=== PATIENT | male | born 1975 | race Caucasian/White ===

== ENCOUNTER 2018-11-07 20:16 | Emergency (ER) | payer SELFPAY ==
[2018-11-07 20:18] VITALS: PULSE 88; RESP 16; TEMP 37.1; O2SAT 99
[2018-11-07 20:24] VITALS: RESP 16
[2018-11-07] MEDS: Aspirin 81 MG CHEW 324 MG CH (20:29)
[2018-11-07] MEDS: Ketorolac 15 MG/ML VIAL IVP (20:29)
[2018-11-07] MEDS: Normal Saline 1,000 ML 1000 ML IV (20:29)
--- NOTE | 2018-11-07 20:29 | DI.RAD_ITS ---
SYMPTOM/DIAGNOSIS: LT SIDED CHEST PAIN, ATYPICAL LT CLAVICLE PA AND LATERAL CHEST: The lungs are well expanded and free of infiltrate. There is no evidence of a pleural effusion or pneumothorax. The heart is not enlarged. Note is made of an apparent mild cortical irregularity at the medial third of the left clavicle on the inferior cortex. IMPRESSION: No evidence of acute cardiopulmonary disease. A mild cortical irregularity at the medial third of the left clavicle is noted inferiorly. This finding could be normal however the finding should be correlated with the patient's clinical history of trauma regarding the possibility of a fracture.
--- NOTE | 2018-11-07 20:44 | W.ED.GENAD ---
Discharge Plan Disposition Patient Disposition: HOME Condition: Good Discharge Details Chief Complaint: Chest Pain Clinical Impression: Chest pain Primary Care Provider: None,None ED Provider: Kapil Weston Home Meds and New Rx's Prescriptions: New famotidine [Pepcid] 40 mg tablet 40 mg PO DAILY Qty: 30 RF: 0 Discharge Instructions Instructions: Chest Pain (ED), Diet for Stomach Ulcers and Gastritis (ED) Additional Instructions: At this time your EKG shows no evidence of heart attack, your troponins are normal, your laboratory work-up shows no significant concerning abnormality. Your chest x-ray shows no acute process. Please follow-up at [facility] for prompt reassessment. As we discussed you are requesting to wait on scheduling of the stress test, please discuss this promptly with your [facility] clinician. Please avoid any spicy foods citrus-based foods or tomato-based products. If you notice any worsening of your symptoms, or any new symptoms such as vomiting, diarrhea, fever, chills, shortness of breath, chest pain, numbness, weakness, or fainting , please return immediately to the emergency department for reevaluation. Please follow up with your primary care provider as soon as possible for reassessment and reevaluation. As always, it was a pleasure participating in your medical care today. Medical Decision Making This is a pleasant 43-year-old male who presents today for evaluation of chest pain. He has had it for the last 3 days, it comes and goes in severity. He describes it as sharp in nature. Normally just lasts a few minutes however tonight it lasted the last few hours. It is unrelated to exertion, no associated cough or hemoptysis. Denies PE risk factors such as recent long car rides, immobilization, recent surgery, prior history of DVT or PE, family history of PE or DVT, morbid obesity, exogenous estrogen and smoking, hemoptysis, history of cancer.He denies any history of cardiac disease or family history of cardiac disease. Aside for his chewing tobacco he has no other significant cardiac risk factors. Heart score is in the low risk category. Initial EKG is unremarkable. Signs and symptoms appear clinically inconsistent with ACS, however atypical ACS is certainly on the differential. We will perform a cardiac work-up. Signs and symptoms are more clinically consistent with questionable mild reflux versus muscle spasm. Will give Toradol and GI cocktail, full dose aspirin and fluids. Will get chest x-ray labs and reassess. 12 AM Patient's laboratory work-up is returned benign, chest x-ray negative for acute process. There is slight cortical irregularity in the medial third of the left clavicle which was noted on physical exam. No evidence of mass or tumor on x-ray per radiology. Troponin x2 is negative, laboratory work-up shows no abnormality, electrolyte stable, renal function benign, proBNP and lipase normal. I did request a repeat EKG however the patient refused the repeat EKG. Heart score is less than 3, low risk category. I did discuss overnight observation serial troponins the patient refused this. I did offer to schedule an outpatient stress test for the patient, and he would like to hold off on this, and follow-up at the [facility]. I did discuss the risks and benefits of these courses of action including and lifelong disability, and the patient understands. I feel that his symptoms are unlikely to be cardiac in nature, or concerning for muscle spasm and reflux. Currently his pain is notably resolved. We will give antacid medication for home use. Discussed red flags which to return, the importance of close follow-up with his PCP for prompt stress testing. I have extensively reviewed the treatment plan and discharge instructions with the patient and their family. I have addressed all patient concerns at this time. The patient and family was made aware of what symptoms to monitor for that would warrant a return to the emergency department. Discussed the plan with the patient and family, they demonstrate verbal understanding and agreement with our assessment and plan at this time. EKG 20: 23 Rate 83 intervals normal sinus rhythm, no significant ST elevations or depressions, there is an inverted T wave in V1. No Wellen syndrome. No evidence of STEMI. FINDINGS: Lungs: Unremarkable. No consolidation. Pleural space: Unremarkable. No pleural effusion. No pneumothorax. Heart/Mediastinum: Unremarkable. No cardiomegaly. Bones/joints: Apparent mild cortical irregularity at the medial third of the left clavicle, inferior cortex. IMPRESSION: 1. No acute cardiopulmonary process. 2. Apparent mild cortical irregularity at the medial third of the left clavicle, inferior cortex. The finding is nonspecific and can be normal. However, correlate with history of trauma. Thank you for allowing us to participate in the care of your patient. Dictated and Authenticated by: Jose Angel Garcia MD HPI General Date/Time Provider Initiated Documentation: 11/07/18 20:29. HPI Narrative: This is a pleasant 43-year-old male with no significant past medical history who presents today for evaluation of chest pain. Patient states that for the last 3 days he has had a sharp sensation in his left anterior chest wall. He states that the pain comes and goes in severity, it is not related to exertion. Over the last few hours he has noticed that it is slightly worsened and last longer than normal. Normally it lasts just a few minutes, however this time it is been continuous. Continues to be sharp but is transition to his left shoulder. He denies any radiation to his back, arm, or neck. He denies any tearing sensation in his chest. He denies any chest heaviness, chest tightness, or bandlike sensation. He denies any cough, fever, chills, nausea, vomiting, diarrhea. Symptoms are unchanged by position, activity, or palpation. He denies any recent trauma. He denies any other complaints. No other modifying factors. He denies any smoking history, he does admit to chewing tobacco. He denies any IV or illicit drug use. He denies any other medical problems. He denies any family history of cardiac disease. Related Data Home Medications Medication Instructions Recorded Confirmed famotidine [Pepcid] 40 mg PO DAILY #30 tab 11/08/18 Previous Rx's Medication Instructions Recorded famotidine [Pepcid] 40 mg PO DAILY #30 tab 11/08/18 Allergies Allergy/AdvReac Type Severity Reaction Status Date / Time No Known Allergies Allergy Unverified 07/31/14 14:10 General Stated Complaint: Chest Pain FARHAN: 3 Review of Systems Review of Systems ROS Unobtainable: All systems reviewed & are unremarkable except as noted in HPI and below PFSH Social History Smoking/Tobacco Use Status: Current every day Tobacco Type: smokeless tobacco Alcohol Intake: current Alcohol Intake frequency: a few times a week Drug use: Never Substance use type: does not use Do you feel safe at home: Yes Do you feel safe in your relationship?: Yes Exam Narrative Exam Narrative: 1.Const: Well-nourished, Well-developed, appearing stated age 2.Eyes: PERRL, no conjunctival injection, and symmetrical lids. 3.ENT: Atraumatic external nose and ears. Moist MM. Neck: Symmetric, trachea midline, No thyromegaly. 4.CVS: +S1/S2, No murmurs or gallops. Peripheral pulses 2+ and equal in all extremities. Brisk capillary refill in all extremities. No significant reproducible chest pain, radial pulses +2 bilaterally. 5.RESP: Unlabored respiratory effort. Clear to auscultation bilaterally. No wheezes rales or rhonchi 6.GI: Soft, Nontender/Nondistended, No hepatosplenomegaly. No guarding or rebound. No epigastric tenderness. No flank or CVA tenderness. 7.MSK: Normocephalic/Atraumatic, Extremities w/o deformity or ttp No cyanosis or clubbing, Normal movement of all extremities 8.Skin: Warm, Dry. No rashes or lesions. 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 Sensation grossly intact, no focal neurologic deficits. 10.Psych: (AAO) x3. Appropriate mood and affect Course Vital Signs Vital signs: Vital Signs Temperature 37.1 C 11/07/18 20:18 Pulse 88 11/07/18 20:18 Respiratory Rate 16 11/07/18 20:18 Pulse Oximetry 99 11/07/18 20:18 Temperature 37.1 C 11/07/18 20:18 Temperature Source Skin 11/07/18 20:18 Pulse 88 11/07/18 20:18 Respiratory Rate 16 11/07/18 20:24 Respiratory Effort Non-Labored 11/07/18 20:24 Respiratory Depth Normal 11/07/18 20:24 Respiratory Pattern Normal 11/07/18 20:24 Pulse Oximetry 99 11/07/18 20:18 Oxygen Delivery Method Room Air 11/07/18 20:18 Oxygen Flow Rate 0 11/07/18 20:18
[2018-11-07 20:54] LABS: Abs Immature Grans 0.02 k/cumm (0.0-0.09); Absolute Basophil Count 0.04 k/cumm (0.0-0.2); Absolute Eosinophil Count 0.19 k/cumm (0.0-0.7); Absolute Lymphocyte Count 1.83 k/cumm (1.2-3.4); Absolute Monocyte Count 0.65 k/cumm (0.11-0.7); Absolute Neutrophil Count 4.72 k/cumm (1.2-6.7); Basophils % 0.5; Eosinophils % 2.6; HCT 45.7 % (40.0-50.0); HGB 15.8 g/dL (13.5-17.5); Immature Grans % 0.3; Lymphocytes % 24.6; Mean Corp. HGB Concentration 34.6 g/dL (32.0-36.0); Mean Platelet Volume 10.8 fL (8.0-11.0); Monocytes % 8.7; Neutrophils % 63.3; Platelet Count 248 x1000/uL (130-400); RBC 5.64 m/cumm (4.50-6.00); White Blood Cell Count 7.45 k/cumm (4.4-10.8)
[2018-11-07 21:03] LABS: INR 0.9 (0.9-1.1); PTT Activated 24.7 sec (21.0-31.4); Prothrombin Time 9.3 sec (9.3-11.0)
--- NOTE | 2018-11-07 21:05 | DI.VRAD_ITS ---
EXAM: XR Chest, 2 Views EXAM DATE/TIME: 11/07/2018 8:30 PM CLINICAL HISTORY: 43 years old, male; Left-sided chest pain; Patient HX: L side cp, atypical L clavicle; Per PT: Pain 3-4 days TECHNIQUE: Imaging protocol: XR of the chest Views: 2 views. COMPARISON: No relevant prior studies available. FINDINGS: Lungs: Unremarkable. No consolidation. Pleural space: Unremarkable. No pleural effusion. No pneumothorax. Heart/Mediastinum: Unremarkable. No cardiomegaly. Bones/joints: Apparent mild cortical irregularity at the medial third of the left clavicle, inferior cortex. IMPRESSION: 1. No acute cardiopulmonary process. 2. Apparent mild cortical irregularity at the medial third of the left clavicle, inferior cortex. The finding is nonspecific and can be normal. However, correlate with history of trauma. Dictated and Authenticated by: Jose Angel Garcia MD. Ordering:SANDRA Dick MD
[2018-11-07 21:12] LABS: ALT 28 U/L (16-63); AST 17 U/L (15-37); Albumin 4.4 g/dL (3.4-5.0); Alkaline Phosphatase 103 U/L (46-116); Anion Gap 9.2 mmol/L (3-11); BUN 22 mg/dL (7-18); Bilirubin, Total 0.3 mg/dL (0.2-1.0); CO2 27.8 mmol/L (21.0-32.0); CREATININE 1.02 mg/dL (0.70-1.30); Calcium 8.8 mg/dL (8.5-10.1); Chloride 103 mmol/L (98-107); Glucose 95 mg/dL (70-100); Lipase 235 U/L (73-393); NT-proBNP 14 pg/mL; Potassium 3.6 mmol/L (3.5-5.1); Sodium 140 mmol/L (136-145); Total Protein 8.3 g/dL (6.4-8.2)
[2018-11-07 21:21] LABS: Troponin I < 0.05 ng/mL (0.00-0.06)
[2018-11-07 22:00] VITALS: BP 123/71; PULSE 80; RESP 16; O2SAT 95
[2018-11-07 22:30] VITALS: BP 118/76; PULSE 81; RESP 16; O2SAT 99
[2018-11-07 23:37] VITALS: BP 118/81; PULSE 80; RESP 16; O2SAT 98
[2018-11-08 00:06] LABS: Troponin I < 0.05 ng/mL (0.00-0.06)
--- NOTE | 2018-11-08 00:17 | NUR.NOTE ---
Nursing Note: Report given to Lala MURDOCK
== END 2018-11-08 00:49 | disposition home or self-care (01) ==
PROVIDERS: Emergency Provider Student in an Organized Health Care Education/Training Program
DX: R07.9 Chest pain, unspecified (principal); Z53.29 Procedure and treatment not carried out because of patient's decision for other reasons
CPT/HCPCS: 80053; 83690; 93005; 96361; 96374; 99285; 71046; 83880; 84484; 85025; 85610; 85730; 93010; 99284; J1885

== ENCOUNTER 2020-06-23 11:10 | Outpatient (REF) | payer BC, SELFPAY ==
[2020-06-23 13:34] LABS: HCT 45.1 % (40.0-50.0); HGB 15.7 g/dL (13.5-17.5); MCH 27.9 pg (27.0-33.0); MCHC 34.8 % (32.0-36.0); MCV 80.2 fL (80-95); MPV 11.3 fL (8.0-11.0); Platelet Count 281 10^3/uL (130-400); RBC 5.62 10^6/uL (4.36-5.78); RDW 12.5 % (11.8-14.1); RDW-SD 36.1 fL; WBC 6.73 10^3/uL (4.4-10.8)
[2020-06-23 13:54] LABS: Anion Gap 8.8 mmol/L (3-11); BUN 12 mg/dL (7-18); CO2 28.2 mmol/L (21.0-32.0); CREATININE 0.9 mg/dL (0.70-1.30); Calcium 9.3 mg/dL (8.5-10.1); Chloride 106 mmol/L (98-107); Glucose 84 mg/dL (74-106); Potassium 4.3 mmol/L (3.5-5.1); Sodium 143 mmol/L (136-145); TSH (W/Ref FT4) 1.07 uIU/mL (0.36-3.74)
== END 2020-06-23 11:11 | disposition home or self-care (01) ==
LOC: NCHCN 11:10
PROVIDERS: PCP Family Medicine; Visit Provider Family Medicine
DX: G25.81 Restless legs syndrome (principal); M75.82 Other shoulder lesions, left shoulder
CPT/HCPCS: 80048; 85027; 84443

== ENCOUNTER 2020-10-13 15:39 | Outpatient (REF) | payer BC, SELFPAY | END 2020-10-13 15:40 | disposition home or self-care (01) | LOC: NCHCN 15:39 | PROVIDERS: PCP Family Medicine; Visit Provider Family Medicine | DX: L03.317 Cellulitis of buttock (principal) | CPT/HCPCS: 87077; 87070; 87186; 87205 ==

== ENCOUNTER 2021-09-28 15:16 | Outpatient (REF) | payer BC, SELFPAY ==
[2021-09-28 15:51] LABS: ALT 33 U/L (16-63); AST 21 U/L (15-37); Albumin 4.1 g/dL (3.4-5.0); Alkaline Phosphatase 95 U/L (46-116); Anion Gap 6.6 mmol/L (3-11); BUN 14 mg/dL (7-18); Bilirubin, Total 0.6 mg/dL (0.2-1.0); CO2 28.4 mmol/L (21.0-32.0); CREATININE 0.8 mg/dL (0.70-1.30); Calcium 9.1 mg/dL (8.5-10.1); Chloride 103 mmol/L (98-107); Glucose 95 mg/dL (74-106); Potassium 3.8 mmol/L (3.5-5.1); Sodium 138 mmol/L (136-145); Total Protein 7.7 g/dL (6.4-8.2)
[2021-09-28 16:16] LABS: Calculated LDL 154 mg/dL (<100); Cholesterol 218 mg/dL (<200); HDL Cholesterol 49 mg/dL (40-60); Triglyceride 77 mg/dL (<150)
== END 2021-09-28 15:17 | disposition home or self-care (01) ==
LOC: NCHCN 15:16
PROVIDERS: PCP Family Medicine; Visit Provider Nurse Practitioner Family
DX: Z00.00 Encounter for general adult medical examination without abnormal findings (principal); Z13.220 Encounter for screening for lipoid disorders; Z13.228 Encounter for screening for other metabolic disorders
CPT/HCPCS: 80053; 80061

== ENCOUNTER 2022-09-09 16:52 | Outpatient (REF) | payer BC, SELFPAY ==
[2022-09-09 21:29] LABS: HCT 44.2 % (40.0-50.0); HGB 15.3 g/dL (13.5-17.5); MCHC 34.6 % (32.0-36.0); MCV 81 fL (80-95); Platelet Count 313 10^3/uL (130-400); RBC 5.46 10^6/uL (4.36-5.78); RDW 12.7 % (11.8-14.1); RDW-SD 37.2 fL; WBC 9.18 10^3/uL (4.4-10.8)
[2022-09-09 21:47] LABS: Anion Gap 11.1 mmol/L (3-11); BUN 14 mg/dL (7-18); CO2 27.9 mmol/L (21.0-32.0); CREATININE 0.9 mg/dL (0.70-1.30); Calcium 9.1 mg/dL (8.5-10.1); Chloride 103 mmol/L (98-107); Estimated GFR 106.67 (mL/min/1.73m2); Glucose 89 mg/dL (74-106); Potassium 3.8 mmol/L (3.5-5.1); Sodium 142 mmol/L (136-145)
== END 2022-09-09 16:53 | disposition home or self-care (01) ==
LOC: NCHCN 16:52
PROVIDERS: PCP Family Medicine; Visit Provider Family Medicine
DX: J01.01 Acute recurrent maxillary sinusitis (principal); J32.0 Chronic maxillary sinusitis
CPT/HCPCS: 80048; 85027

== ENCOUNTER 2023-02-27 14:24 | Outpatient (REF) | payer BC, SELFPAY | END 2023-02-27 14:25 | disposition home or self-care (01) | LOC: LBN 14:24 | PROVIDERS: PCP Family Medicine; Visit Provider Otolaryngology | DX: J32.0 Chronic maxillary sinusitis (principal) | CPT/HCPCS: 87077; 87070; 87186 ==

== ENCOUNTER 2023-06-09 10:28 | Day surgery (SDC) | payer BC, SELFPAY ==
--- NOTE | 2023-06-08 13:04 | PDOC.DSDIS_ITS ---
Date of service: 06/09/23 Time of Service: 14:44 Discharge Plan Disposition Patient Disposition: Home Condition: Good Discharge Details Reason For Visit: screening colonoscopy Attending Provider: Bronson Lopez Primary Care Provider: Yan Rivas Home Meds and New Rx's Prescriptions: Continued atorvastatin [Lipitor] 20 mg tablet 20 mg PO DAILY Patient Comments: Per [facility] [place]-pt unsure omeprazole PO omeprazole 20 mg capsule,delayed release(DR/EC) 20 mg PO DAILY Patient Comments: TAKE 1 CAPSULE BY MOUTH ONCE DAILY; pt states as needed Discontinued bisacodyl [Dulcolax (bisacodyl)] 5 mg tablet,delayed release (DR/EC) 5 mg PO ONCE Qty: 4 0RF Rx Instructions: Colonoscopy Bowel Prep- Per Instructions polyethylene glycol 3350 17 gram/dose powder 238 g PO ONCE Qty: 238 0RF Rx Instructions: Colonoscopy Bowel Prep- Per Instructions Discharge Instructions Instructions: Colorectal Polyps (GEN) Additional Instructions: Chema, we were able to complete your colonoscopy today without any difficulty. I did find 3 polyps. 2 of these were small, and the other was medium in size. To the naked eye, there are no features of these polyps that I find particularly worrisome. I did remove all of these polyps, and I will send them off to the pathologist for testing. Once we know the nature of the polyps, we can use that information to determine the timing of your next colonoscopy. I hope the procedure was comfortable for you and that you make a quick recovery. Again, I very much appreciate your patience during the day, I know that all the waiting can be quite tedious especially when he can eat or drink. If you have any questions at all, please do not hesitate to call or ask at any point. 1. If tolerated, consume a soft, low fiber diet for 1-2 days. 2. Do not drive, drink alcohol, operate machinery, make critical decisions, or do activities that require coordination or balance for 24 hours. 3. Because air was put into your colon during the procedure, expelling air from your rectum (passing gas or farting) is normal. 4. You may not have a bowel movement for 1-3 days because of the colonoscopy prep. This is normal. 5. Go directly to the emergency room if you notice any of the following: Develop chills (warm to touch), or if you have a thermometer and your temperature is above 101 Difficulty breathing or difficultly swallowing Persistent vomiting Severe abdominal pain, other than gas cramps Severe chest pain Black, tarry stools Any bleeding ? exceeding one tablespoon 6. Call your physician if the site where your intravenous was started becomes red, swollen, painful, and warm to touch. 7. Your physician has reviewed your pre-procedure medications. Please continue to take those medications as previously ordered. You will be given specific information/education regarding any changes to your medications before leaving. Activity:: Activity as Tolerated Diet:: As Tolerated Discharge Orders Discharge Orders: Discharge Order (Routine); Ordered 06/08/23 Ordered By: Bronson Lopez DS: Diagnosis Discharge Diagnosis (1) Encounter for screening colonoscopy for [id number] patient: Status: Acute Asessment and Plan: Follow-up on polypectomy results
--- NOTE | 2023-06-08 13:06 | COLE_ITS ---
Date of service: 06/09/23 Time of Service: 14:46 Colonoscopy Report Date of procedure: 06/09/23 Pre-op diagnosis general: screening colonoscopy Post-op diagnosis procedure note: other (Colorectal polyps) Procedure: colonoscopy with polypectomy Surgeon: Bronson Lopez Anesthesia Type: General:No Airway Estimated blood loss (mL): 10 Pathology: other (0.25 cm flat polyp at 40 cm, 0.25 cm pedunculated polyp at 30 cm, 0.75 cm pedunculated polyp at 15 cm) Complications: None Disposition: same day Indications: Chema is a 47 year old man who needs his first screening colonoscopy Prep: Miralax/Dulcolax Procedure Start Time: 14:03 Procedure End Time: 14:26 Retraction Time: 15 Findings: 0.25 cm flat polyp at 40 cm, 0.25 cm pedunculated polyp at 30 cm, 0.75 cm pedunculated polyp at 15 cm Procedure Description: After the induction of monitored anesthetic care, and with the patient in left lateral decubitus position, I began by performing an external anorectal exam.? Perineum and skin were normal, as was the anal verge.? There was no evidence of external hemorrhoids.? Next, I performed a digital rectal exam.? I did not appreciate any abnormal findings.? Next, I advanced a colonoscope into the rectal vault.? I performed retroflexion.? This was normal.? Using insufflation, I then advanced the colonoscope beyond the rectal folds and into the sigmoid colon before advancing towards the cecum.? The scope was noted to be in the cecum by identification of the ileocecal valve and appendiceal orifice.? I then began withdrawing the colonoscope using repeated irrigation as necessary for full evaluation of the colonic mucosa. Around 40 cm from the anal verge I identified a 0.25 cm polyp. ?It appeared flat in character. ?I was able to remove this with a cold forcep polypectomy. ?I examined the site, and there was minimal bleeding. ?Once this was completed, I continued to withdraw the scope and examine the remainder of the colonic mucosa.? I found another 0.25 cm polyp around 30 cm from the anal verge. This was a little more pedunculated. This was also removed with cold forceps without any issue. Once the scope was withdrawn to the level of the rectum, great care was taken to examine portions of the rectal folds.? Just at the top of the rectum around 15 cm from the anal verge was another polyp. This was about 0.75 cm. This was pedunculated and removed with cold snare polypectomy. There was a little bit of bleeding from the site that was cauterized without issue. Finally, the scope was withdrawn and the patient was brought to the same-day surgery recovery unit as the anesthetic wore off. ?The findings and instructions were shared with the patient prior to discharge. [place] Bowel Prep [place] Bowel Prep Right Colon: 3 Left Colon: 3 Transverse Colon: 3 Total Score: 9
[2023-06-09 10:40] VITALS: BP 131/89; PULSE 58; RESP 16; TEMP 36.2; O2SAT 96
[2023-06-09] MEDS: Lactated Ringers 1,000 ML 80 ML IV (11:34)
--- NOTE | 2023-06-09 12:07 | ANES.PREOP_ITS ---
General Info Date of Service Date Performed: 06/09/23 Height: 5 ft 11 in Weight: 101.8 kg Body Mass Index (BMI): 31.3 Surgical Procedure: Operation Date: 06/09/23 12:05 Proposed Procedure Side Surgeon p Pee Lopez MD Meds Allergies and Home Medications Allergies Allergy/AdvReac Type Severity Reaction Status Date / Time No Known Allergies Allergy Unverified 06/09/23 11:06 Home Medication Medication Instructions Recorded atorvastatin 20 mg tablet (Lipitor) 20 mg PO DAILY 06/26/22 omeprazole PO 02/27/23 omeprazole 20 mg capsule,delayed 20 mg PO DAILY 06/06/23 release Current Visit Medications: Current Medications Generic Name Dose Route Start Last Admin Trade Name Freq PRN Reason Stop Dose Admin Hyoscyamine Sulfate 0.125 mg 06/08/23 13:07 Hyoscyamine 0.125 Mg Sl/Oral/Chew SL 07/08/23 13:06 DIRECTED PRN Ringer's Solution 1,000 mls @ 80 mls/hr 06/09/23 06:00 06/09/23 11:34 IV 06/09/23 23:59 80 mls/hr INFUSION KRISTIN Administration IV Miscellaneous Supplies 1 each 06/09/23 06:00 Iv Access IV 06/09/23 23:59 DIRECTED KRISTIN Ondansetron HCl 4 mg 06/08/23 13:07 Ondansetron 4 Mg/2 Ml Vial IVP 07/08/23 13:06 Q4H PRN PRN Nausea / Vomiting Sodium Chloride 0 ml 06/09/23 06:00 Normal Saline Flush 10 Ml Syr IV 06/09/23 23:59 PRN PRN Sodium Chloride 0 ml 06/09/23 06:00 Normal Saline 10 Ml Vial IJ 06/09/23 23:59 DIRECTED PRN Sterile Water 0 ml 06/09/23 06:00 Water,Injection,Sterile 10 Ml Vial IJ 06/09/23 23:59 DIRECTED PRN PFSH Active Problems Active Problems: Problem Status Onset Code Encounter for screening colonoscopy for [id number] patient Z12.11 GERD (gastroesophageal reflux disease) K21.9 Chronic right maxillary sinusitis J32.0 Acute maxillary sinusitis J01.00 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 Kidney stones N20.0 Acute non-recurrent ethmoidal sinusitis J01.20 Medical History Medical History Rash Surgical History Surgical History H/O endoscopic sinus surgery Right maxillary antrostomy, right anterior ethmoidectomy, 04/03/2015 Revision right endoscopic sinus surgery, 09/2022, [facility] [place] History of ankle surgery Tobacco Smoking/Tobacco Use Status: Current every day Tobacco Type: smokeless tobacco Smokeless tobacco user: chewing tobacco Alcohol Alcohol Intake: current Alcohol intake frequency: a few times a month Alcohol type: beer Substance Use Substance use: Never Substance use type: does not use Vital Signs and Lab Results Vital Signs Most Recent Vital Signs in EMR: Most Recent Vital Signs Temp Pulse Resp BP Pulse Ox 36.2 C L 58 L 16 131/89 96 06/09/23 10:40 06/09/23 10:40 06/09/23 10:40 06/09/23 10:40 06/09/23 10:40 Lab Results Blood Type / Crossmatch: No Data to Display Complete Blood Count: No Data to Display Complete Metabolic Panel: No Data to Display Liver Function Panel: No Data to Display Coagulation Panel: No Data to Display Cardiac Panel: No Data to Display Arterial Blood Gas: No Data to Display Venous Blood Gas: No Data to Display Pancreas Panel: No Data to Display Thyroid Panel: No Data to Display Infectious Disease: No Data to Display Blood Cultures: No Data to Display Toxicology Panel: No Data to Display Anesthesia Assessment and Plan Anesthesia History Personal History: No History of Anesthesia Complications Family History: No Family History of Anesthesia Complications Exercise Tolerance Exercise Tolerance: Metabolic Equivalents>4 Cardiac & Pulmonary Exam Cardiac Exam: Normal S1/S2 Heart Sounds Pulmonary Exam: Clear Bilateral Breath Sounds Implantable Cardiac Device Does patient have a Pacemaker or an ICD?: No Airway Exam Known Difficult Airway: No Mallampati Class: 4 Mouth Opening: Narrow (< 3cm) Thyromental Distance: Greater than 3 cm Neck Range of Motion: Full ROM Neck Circumference: Normal Teeth Condition: Normal Dentition ASA Classification ASA Score: ASA 2 Emergency Case?: No NPO Status NPO Status: NPO Clears >2 hours, Solids >8 hours Anesthesia Plan Resuscitation Status: Full Code Anesthesia Technique: General Anesthesia Airway Planned: Natural Airway Monitors Used: Standard Monitors Preoperative Comments:: 47 yo male for colo. Sig PMHx: GERD (omeprazole - rare use), chewing tobacco (none today), occ EtOh. denies major.
[2023-06-09 12:09] VITALS: BMI 31.3
--- NOTE | 2023-06-09 14:17 | BOWEL_PTH ---
PATIENT: Chema Raygoza LOC: TIFF U#:[id number] AGE/SX: 47/M ROOM: RE06/09/[address]: Bronson Lopez MD : 1975 BED: DIS: 06/09/2023 SPEC #: [id number] RECD: 06/09/23 17:37 STATUS: SAM RE #: [id number] AMANDA: 06/09/23 14:[address]: Bronson Lopez DEPT: Surgical Specimen RECD BY: Leann Pérez ENTERED: 06/09/23 17:38 SP TYPE: Bowel OTHR DR: Yan Rivas Tissues: 1 - BIOPSY BOWEL 2 - BIOPSY BOWEL 3 - BIOPSY BOWEL Procedures: GROSS AND MICRO LEVEL 4 Comments: [id number]
[2023-06-09 14:35] VITALS: BP 116/78; PULSE 79; RESP 16; TEMP 36.3; O2SAT 95
--- NOTE | 2023-06-09 14:45 | W.ANESPOSTOP ---
Postoperative Evaluation Date, Time and Location Date Performed: 06/09/23 Time Performed: 14:45 Patient Location: Day Surgery Unit Vital Signs Most Recent Imported Vital Signs: Most Recent Vital Signs Temp Pulse Resp BP Pulse Ox 36.3 C L 79 16 116/78 95 06/09/23 14:35 06/09/23 14:35 06/09/23 14:35 06/09/23 14:35 06/09/23 14:35 Pain Score Most Recent Pain Score: Most Recent Pain Score Pain Level 0 06/09/23 14:35 Assessment Mental Status: Awake (Alert & Oriented to Patient Baseline) Airway and Respiratory Function: Patent airway with normal (patient baseline) respiratory exam Cardiovascular Function: Hemodynamically Stable Hydration Status: Adequately Hydrated Nausea & Vomiting: No Nausea or Vomiting Pain: Pt. Denies Any Pain Peripheral Nerve Block: Patient did not receive a nerve block
[2023-06-09 15:03] VITALS: PULSE 62; RESP 16; TEMP 36.4; O2SAT 100
== END 2023-06-09 15:14 | disposition home or self-care (01) ==
LOC: SUR 10:28
PROVIDERS: PCP Family Medicine; Visit Provider Surgery
PROC: 0DJD8ZZ Inspection of Lower Intestinal Tract, Via Natural or Artificial Opening Endoscopic (ICD-10-PCS; CPT 45378; principal; 2023-06-09 12:00)
DX: Z12.11 Encounter for screening for malignant neoplasm of colon (principal); D12.5 Benign neoplasm of sigmoid colon; K21.9 Gastro-esophageal reflux disease without esophagitis; F17.220 Nicotine dependence, chewing tobacco, uncomplicated; K63.89 Other specified diseases of intestine
CPT/HCPCS: 45385; 45380; 88305; J2704